=== PATIENT | male | born 1965 | race Caucasian/White ===

== ENCOUNTER 2020-11-13 13:28 | Inpatient (IN) | payer BC, OTHER ==
[~2020-11-13] VITALS: Ht 182.2 cm; Wt 99.3 kg
[2020-11-13] MEDS ORDERED: NS IV 1000 ML 1,000 ML IV STA (13:47)
[2020-11-13] MEDS ORDERED: PANTOPRAZOLE 40 MG (PROTONIX) VIAL IV STA (13:47)
--- NOTE | 2020-11-13 13:55 | ED GI ---
General Chief Complaint: Abdominal/GI Problems Stated Complaint: ABD PAIN Source of Information: Patient History of Present Illness Date Seen by Provider: Nov 13, 2020 Time Seen by Provider: 13:29 Initial Comments 55-year-old male presenting with upper abdominal pain and nausea with vomiting 1 week. He had gone to clinic where he follows with Dr. Madden and they had sent him in for an ultrasound and labs. On the ultrasound they had felt that his portal vein was thrombosed and occluded. They were concerned that this might be contributing to his acute abdominal pain. However due to a lot of gas in his intestines and bowels they were having difficulty getting good windows on the ultrasound and recommended further evaluation. Since he was still having a lot of pain they recommended he come to the emergency department for further ev aluation. He denies any past medical problems with the liver or gallbladder. He does have a history of high triglycerides, high blood pressure and diabetes managed with oral medication. Since taking some nausea medicine today he was able to take ibuprofen for pain as well as some 1/2 strength gatorade to help prevent his sugar from going too high. Allergies and Home Medications Allergies Coded Allergies: No Known Drug Allergies (Unverified , 11/13/20) Patient Home Medication List Home Medication List Reviewed: Yes Review of Systems Review of Systems Constitutional: chills, fever (low grade), malaise EENTM: No Symptoms Reported Respiratory: No Symptoms Reported Cardiovascular: No Symptoms Reported Gastrointestinal: See HPI Genitourinary: No Symptoms Reported Musculoskeletal: no symptoms reported Skin: no symptoms reported Psychiatric/Neurological: No Symptoms Reported Endocrine: No Symptoms Reported Past Afttogp-Zxcvvp-Fddftr Hx Past Med/Social Hx: Reviewed Nursing Past Med/Soc Hx Patient Social History Recent Foreign Travel: No Contact w/Someone Who Travel: No Past Medical History Surgeries: Yes Appendectomy Respiratory: No Cardiac: Yes High Cholesterol (triglycerides), Hypertension Neurological: No Genitourinary: No Gastrointestinal: No Musculoskeletal: No Endocrine: Yes Diabetes, Non-Insulin dep HEENT: No Cancer: No Psychosocial: No Physical Exam Vital Signs Vital Signs - First Documented 11/13/20 13:34 Temp 37.3 Pulse 84 Resp 16 B/P (MAP) 121/81 (94) Pulse Ox 94 O2 Delivery Room Air Capillary Refill : Height/Weight/BMI Height: '" Weight: lbs. oz. kg; BMI Method: General Appearance: WD/WN, mild distress Neck: non-tender, supple Respiratory: chest non-tender, lungs clear, normal breath sounds, no respiratory distress, no accessory muscle use Cardiovascular: normal peripheral pulses, regular rate, rhythm Gastrointestinal: normal bowel sounds, soft, no pulsatile mass, guarding; No rebound; tenderness (upper abdomen RUQ worst area) Rectal: deferred Extremities: normal range of motion, normal capillary refill Neurologic/Psychiatric: director stage II-XII nml as tested, alert, oriented x 3 Skin: normal color, warm/dry Images 1 - upper abdominal pain worst area in RUQ Focused Exam Lactate Level 11/13/20 13:40: Lactic Acid Level 1.17 Lactic Acid Level Laboratory Tests Test 11/13/20 13:40 Lactic Acid Level 1.17 MMOL/L (0.50-2.00) Progress/Results/Core Measures Results/Orders Lab Results Laboratory Tests Test 11/13/20 13:40 11/13/20 14:46 Range/Units White Blood Count 11.2 H 4.3-11.0 10^3/uL Red Blood Count 4.73 4.35-5.85 10^6/uL Hemoglobin 13.4 13.3-17.7 G/DL Hematocrit 40 40-54 % Mean Corpuscular Volume 84 80-99 FL Mean Corpuscular Hemoglobin 28 25-34 PG Mean Corpuscular Hemoglobin Concent 34 32-36 G/DL Red Cell Distribution Width 12.7 10.0-14.5 % Platelet Count 204 130-400 10^3/uL Mean Platelet Volume 10.2 7.4-10.4 FL Immature Granulocyte % (Auto) 0 % Neutrophils (%) (Auto) 73 42-75 % Lymphocytes (%) (Auto) 17 12-44 % Monocytes (%) (Auto) 9 0-12 % Eosinophils (%) (Auto) 1 0-10 % Basophils (%) (Auto) 0 0-10 % Neutrophils # (Auto) 8.2 H 1.8-7.8 X 10^3 Lymphocytes # (Auto) 1.9 1.0-4.0 X 10^3 Monocytes # (Auto) 1.0 0.0-1.0 X 10^3 Eosinophils # (Auto) 0.1 0.0-0.3 10^3/uL Basophils # (Auto) 0.0 0.0-0.1 10^3/uL Immature Granulocyte # (Auto) 0.0 0.0-0.1 10^3/uL Prothrombin Time 14.3 12.2-14.7 SEC INR Comment 1.1 0.8-1.4 Activated Partial Thromboplast Time 27 24-35 SEC Sodium Level 134 L 135-145 MMOL/L Potassium Level 4.1 3.6-5.0 MMOL/L Chloride Level 97 L 98-107 MMOL/L Carbon Dioxide Level 24 21-32 MMOL/L Anion Gap 13 5-14 MMOL/L Blood Urea Nitrogen 14 7-18 MG/DL Creatinine 1.14 0.60-1.30 MG/DL Estimat Glomerular Filtration Rate > 60 BUN/Creatinine Ratio 12 Glucose Level 140 H 70-105 MG/DL Lactic Acid Level 1.17 0.50-2.00 MMOL/L Calcium Level 9.3 8.5-10.1 MG/DL Corrected Calcium 8.9 8.5-10.1 MG/DL Magnesium Level 2.0 1.6-2.4 MG/DL Total Bilirubin 0.5 0.1-1.0 MG/DL Aspartate Amino Transf (AST/SGOT) 24 5-34 U/L Alanine Aminotransferase (ALT/SGPT) 73 H 0-55 U/L Alkaline Phosphatase 114 40-136 U/L Total Protein 7.6 6.4-8.2 GM/DL Albumin 4.5 3.2-4.5 GM/DL Lipase 13 8-78 U/L Urine Color DARK YELLOW Urine Clarity CLEAR Urine pH 6.0 5-9 Urine Specific Emmett 1.010 L 1.016-1.022 Urine Protein NEGATIVE NEGATIVE Urine Glucose (UA) NEGATIVE NEGATIVE Urine Ketones NEGATIVE NEGATIVE Urine Nitrite NEGATIVE NEGATIVE Urine Bilirubin NEGATIVE NEGATIVE Urine Urobilinogen 1.0 < = 1.0 MG/DL Urine Leukocyte Esterase NEGATIVE NEGATIVE Urine RBC (Auto) NEGATIVE NEGATIVE Urine RBC RARE /HPF Urine WBC 2-5 /HPF Urine Squamous Epithelial Cells 0-2 /HPF Urine Crystals NONE /LPF Urine Bacteria NEGATIVE /HPF Urine Casts PRESENT /LPF Urine Hyaline Casts 10-25 H /LPF Urine Mucus SMALL H /LPF Urine Culture Indicated NO My Orders Orders - LORI CHAMPION MD Comprehensive Metabolic Panel (11/13/20 13:47) Lipase (11/13/20 13:47) Ua Culture If Indicated (11/13/20 13:47) Ed Iv/Invasive Line Start (11/13/20 13:47) Cbc With Automated Diff (11/13/20 13:47) Ct Abdomen/Pelvis W (11/13/20 13:47) Magnesium (11/13/20 13:47) Lactic Acid Analyzer (11/13/20 13:47) Ns Iv 1000 Ml (Sodium Chloride 0.9%) (11/13/20 13:47) Pantoprazole Injection (Protonix Injecti (11/13/20 13:47) Iohexol Injection (Omnipaque 350 Mg/Ml 1 (11/13/20 14:30) Received Contrast (Hold Metformin- Contr (11/13/20 14:30) Sodium Chloride Flush (Catheter Flush Sy (11/13/20 14:30) Ns (Ivpb) (Sodium Chloride 0.9% Ivpb Bag (11/13/20 14:30) Protime With Inr (11/13/20 15:01) Partial Thromboplastin Time (11/13/20 15:01) Medications Given in ED Current Medications Medications Dose Ordered Sig/Ace Route Start Time Stop Time Status Last Admin Dose Admin Iohexol 100 ml ONCE ONCE IV 11/13/20 14:30 11/13/20 14:31 DC 11/13/20 14:30 100 ML Sodium Chloride 10 ml NEEDED PRN IV 11/13/20 14:30 11/13/20 16:21 DC 11/13/20 14:30 10 ML Sodium Chloride 100 ml ONCE ONCE IV 11/13/20 14:30 11/13/20 14:31 DC 11/13/20 14:30 80 ML Vital Signs/I&O 11/13/20 11/13/20 13:34 16:20 Temp 37.3 37.3 Pulse 84 79 Resp 16 16 B/P (MAP) 121/81 (94) 124/78 (94) Pulse Ox 94 95 O2 Delivery Room Air Room Air Progress Progress Note #1: Progress Note check labs, CT scan of abdomen/pelvis with IV contrast to further evaluate the liver and portal vein system. Give IVF for hydration, Protonix for gastritis. He rates his pain 2/10 currently since taking ibuprofen at home. Will defer pain med for now. Nausea controlled currently as well. Advised to let us know if either returns and will give more meds. Progress Note #2: Time: 14:54 Progress Note CBC has mild elevation of WBC to 11.2. Chemistry without acute significant abnormality. Lactic acid 1.17. ALT mildly elevated to 73. Lipase and other LFTs are all WNL. CT scan still shows signs of Portal vein thrombosis. RLL atelectasis vs infiltrate. Progress Note #3: Time: 15:08 Progress Note d/w Dr. Duarte and will admit for anticoagulation and treatment for pain, n/v. She accepted pt and requested surgery consult. 1520 Dr. Bruno advised of consult Progress Note #4: Progress Note Patient was agreeable to be admitted but wanted his to drive him to [facility] rather than wait for ambulance to take him. Will send paperwork with pt and advised he needs to go straight to the hospital in [place] and that he is at risk of clotting off his intestines or having bleeding from his esophagus or gut so he needs to be seen as soon as possible for treatment. Diagnostic Imaging Diagonstic Imaging: CT Plain Films/CT/US/NM/MRI: abdomen, pelvis Comments NAME: PHILLIP DUMONT [facility] REC#: [id number] PT STATUS: REG ER : 1965 PHYSICIAN: LORI CHAMPION MD ADMIT DATE: 11/13/20/ER FS Draft Date of Exam:11/13/20 CT ABDOMEN/PELVIS W PROCEDURE: CT abdomen and pelvis with contrast. TECHNIQUE: Multiple contiguous axial images were obtained through the abdomen and pelvis after administration of intravenous contrast. Auto Exposure Controls were utilized during the CT exam to meet ALARA standards for radiation dose reduction. All CT scans use one or more of the following dose optimizing techniques: automated exposure control, MA and/or KvP adjustment based on patient size and exam type or iterative reconstruction. INDICATION: Upper abdominal pain for one week. COMPARISON: No prior studies are available for comparison. FINDINGS: Lung bases demonstrate some minimal infiltrate or atelectasis in the right lower lobe. Tiny circumscribed low density lesions in the dome of the liver are noted, too small to characterize. There are some patchy areas of low attenuation within the liver right lobe. There is an absence of contrast within the main portal vein as well as the right and left portal vein suggestive of portal vein thrombosis. There is flow in the hepatic arteries. No biliary ductal dilatation is seen. Pancreas and spleen are unremarkable. No adrenal mass is identified. Kidneys are unremarkable. Aorta is non-aneurysmal. No central retroperitoneal or mesenteric lymphadenopathy is seen. The small and large bowel loops are normal caliber. There is no obstruction. There is a small fat-containing umbilical hernia. Trace free fluid in the right gutter is noted. The bladder is decompressed. Prostate is unremarkable. The bony structures are nonacute. IMPRESSION: 1. Minimal right lower lobe infiltrate or atelectasis. 2. Findings suggestive of portal vein thrombosis. There is parenchymal heterogeneity in the liver as well with probable small hepatic cyst. Ultrasound would be useful for further evaluation to evaluate hepatic vasculature. 3. Small fat-containing umbilical hernia. Dictated on workstation # [id number] Dict: 11/13/20 1442 Trans: 11/13/20 1450 [facility] [id number] Interpreted by: JASE SANTIAGO MD Electronically signed by: Departure Communication (Admissions) Time/Spoke to Admitting Phy: 15:08 d/w Dr. Duarte for hospitalist service and will admit to treat with anticoagulation and for pain and nausea control for his portal vein thrombosis. She requested surgery consult in case pt had complications so will notify Dr. Bruno. Time/Spoke to Consulting Phy: 15:[address] Bruno of pt consult and what was going on for the patient and the concern for possible ischemic bowel and esophageal varices with bleeding, although he has had none of those things currently. Impression Primary Impression: Portal vein thrombosis Additional Impressions: Upper abdominal pain Nausea & vomiting Qualified Codes: R11.14 - Bilious vomiting Disposition: 30 STILL A PATIENT Condition: Stable Admissions Decision to Admit Reason: Admit from ER (General) Decision to Admit/Date: Nov 13, 2020 Time/Decision to Admit Time: 15:08 Departure-Patient Inst. Referrals: GARRY MADDEN DO (PCP/Family) Primary Care Physician LORI CHAMPION MD Nov 13, 2020 13:55
[2020-11-13 14:08] LABS: BASOPHILS % (AUTO) 0 % (0-10); EOSINOPHILS % (AUTO) 1 % (0-10); HEMATOCRIT 40 % (40-54); HEMOGLOBIN 13.4 G/DL (13.3-17.7); LYMPHOCYTES % (AUTO) 17 % (12-44); MEAN CORPUSCULAR HEMOGLOBIN 28 PG (25-34); MEAN CORPUSCULAR HGB CONC 34 G/DL (32-36); MEAN CORPUSCULAR VOLUME 84 FL (80-99); MEAN PLATELET VOLUME 10.2 FL (7.4-10.4); MONOCYTES % (AUTO) 9 % (0-12); NEUTROPHILS % (AUTO) 73 % (42-75); PLATELET COUNT 204 10^3/uL (130-400); WHITE BLOOD COUNT 11.2 10^3/uL (4.3-11.0)
[2020-11-13 14:09] LABS: EOSINOPHILS # (AUTO) 0.1 10^3/uL (0.0-0.3); LYMPHOCYTES # (AUTO) 1.9 X 10^3 (1.0-4.0); NEUTROPHILS # (AUTO) 8.2 X 10^3 (1.8-7.8)
[2020-11-13 14:10] LABS: ALANINE AMINOTRANSFERASE 73 U/L (0-55); ALBUMIN 4.5 GM/DL (3.2-4.5); ALKALINE PHOSPHATASE 114 U/L (40-136); BILIRUBIN,TOTAL 0.5 MG/DL (0.1-1.0); BUN/CREATININE RATIO 12; CALCIUM 9.3 MG/DL (8.5-10.1); CARBON DIOXIDE 24 MMOL/L (21-32); CHLORIDE 97 MMOL/L (98-107); CREATININE SERUM 1.14 MG/DL (0.60-1.30); GFR ESTIMATED > 60; GLUCOSE 140 MG/DL (70-105); LIPASE 13 U/L (8-78); POTASSIUM 4.1 MMOL/L (3.6-5.0); SODIUM 134 MMOL/L (135-145); TOTAL PROTEIN 7.6 GM/DL (6.4-8.2)
[2020-11-13] MEDS: CATHETER FLUSH 10 ML SYR IV PRN (14:30)
[2020-11-13] MEDS ORDERED: IOHEXOL 350 MG/ML 100 ML (OMNIPAQUE 350) VIAL IV ONE (14:30)
[2020-11-13] MEDS ORDERED: NS 100 ML (IVPB) BAG IV ONE (14:30)
[2020-11-13] MEDS ORDERED: HOLD METFORMIN - RECEIVED CONTRAST 20 ML VIAL IV SCH (14:30)
--- NOTE | 2020-11-13 14:50 | Diagnostic Imaging Report ---
PROCEDURE: CT abdomen and pelvis with contrast. TECHNIQUE: Multiple contiguous axial images were obtained through the abdomen and pelvis after administration of intravenous contrast. Auto Exposure Controls were utilized during the CT exam to meet ALARA standards for radiation dose reduction. All CT scans use one or more of the following dose optimizing techniques: automated exposure control, MA and/or KvP adjustment based on patient size and exam type or iterative reconstruction. INDICATION: Upper abdominal pain for one week. COMPARISON: No prior studies are available for comparison. FINDINGS: Lung bases demonstrate some minimal infiltrate or atelectasis in the right lower lobe. Tiny circumscribed low density lesions in the dome of the liver are noted, too small to characterize. There are some patchy areas of low attenuation within the liver, right lobe. There is an absence of contrast within the main portal vein as well as the right and left portal vein suggestive of portal vein thrombosis. There is flow in the hepatic arteries. No biliary ductal dilatation is seen. Pancreas and spleen are unremarkable. No adrenal mass is identified. Kidneys are unremarkable. Aorta is non-aneurysmal. No central retroperitoneal or mesenteric lymphadenopathy is seen. The small and large bowel loops are normal caliber. There is no obstruction. There is a small fat-containing umbilical hernia. Trace free fluid in the right gutter is noted. The bladder is decompressed. Prostate is unremarkable. The bony structures are nonacute. IMPRESSION: 1. Minimal right lower lobe infiltrate or atelectasis. 2. Findings suggestive of portal vein thrombosis. There is parenchymal heterogeneity in the liver as well with probable small hepatic cyst. Findings correlate with outside ultrasound report raising the question of portal vein thrombosis performed earlier the same day. 3. Small fat-containing umbilical hernia. Dictated by: Dictated on workstation # [id number]
[2020-11-13 15:02] LABS: BACTERIA,URINE NEGATIVE /HPF; BILIRUBIN,URINE NEGATIVE (NEGATIVE); CLARITY,URINE CLEAR; COLOR,URINE DARK YELLOW; GLUCOSE, URINE (UA) NEGATIVE (NEGATIVE); KETONES,URINE NEGATIVE (NEGATIVE); LEUKOCYTE ESTERASE ,URINE NEGATIVE (NEGATIVE); NITRITE,URINE NEGATIVE (NEGATIVE); PROTEIN,URINE NEGATIVE (NEGATIVE); RBC,URINE RARE /HPF; SQUAMOUS EPITHELIAL CELL,UR 0-2 /HPF
[2020-11-13 15:19] LABS: INR 1.1 (0.8-1.4); PROTHROMBIN TIME PATIENT 14.3 SEC (12.2-14.7)
--- NOTE | 2020-11-13 17:00 | NUR ---
PHILLIP DUMONT admitted to room 404-1, with an admitting diagnosis of THROMBOSIS, on 11/13/20 from ED.PHILLIP DUMONT introduced to surroundings, call light, bed controls, phone, TV, temperature control, lights, meal times, smoking policy, visitor policy, side rail policy, bathrooms and showers. Patient Rights given to patient in the handbook. PHILLIP DUMONT verbalizes understanding that [facility] is not responsible for the loss or damage to any personal effects or valuables that are kept in the patients posession during their hospitalization.
[2020-11-13 17:31] VITALS: BP 124/78
[2020-11-13 17:33] VITALS: BP 7/86
[2020-11-13] MEDS: ENOXAPARIN 100 MG/1 ML (LOVENOX) SYR SC SCH (18:06)
[2020-11-13] MEDS: NS IV 1000 ML 1,000 ML IV SCH (18:07)
--- NOTE | 2020-11-13 18:34 | Consultation - Surgery ---
JUSTO STODDARD MED STUDENT 11/13/20 1833: History of Present Illness History of Present Illness Patient Consulted On(emmanuelle/time) 11/13/20 17:27 Date Seen by Provider: Nov 13, 2020 Time Seen by Provider: 18:20 Reason for Visit: Abd pain, GI problems History of Present Illness HPI per ED: 55-year-old male presenting with upper abdominal pain and nausea with vomiting 1 week. He had gone to clinic where he follows with Dr. Madden and they had sent him in for an ultrasound and labs. On the ult rasound they had felt that his portal vein was thrombosed and occluded. They were concerned that this might be contributing to his acute abdominal pain. However due to a lot of gas in his intestines and bowels they were having difficulty getting good windows on the ultrasound and recommended further evaluation. Since he was still having a lot of pain they recommended he come to the emergency department for further evaluation. He denies any past medical problems with the liver or gallbladder. He does have a history of high triglycerides, high blood pressure and diabetes managed with oral medication. Since taking some nausea medicine today he was able to take ibuprofen for pain as well as some 1/2 strength gatorade to help prevent his sugar from going too high. HPI: Nasir is a 55yo male being consulted for abd pain and vomiting beginning last Friday. He says that he didn't eat anything from to Friday night, when he ate [employer] and shortly after began experiencing abd pain across the upper part of his abd, and loose stools. He describes the pain as a constant ache that becomes worse with food. At its worst he rated it a 7/10, but currently is at 2/10. Denies nausea, but has been experiencing dry heaving w/o vomiting since his symptoms began. Allergies and Home Medications Allergies Coded Allergies: No Known Drug Allergies (Unverified , 11/13/20) Patient Home Medication List Home Medication List Reviewed: Yes Past Zjxohtt-Dhokio-Xoepxx Hx Patient Social History Alcohol Use: Denies Use Recreational Drug Use: No Smoking Status: Never a Smoker 2nd Hand Smoke Exposure: No Recent Foreign Travel: No Contact w/Someone Who Travel: No Recent Infectious Disease Expo: No Recent Hopitalizations: No Seasonal Allergies Seasonal Allergies: No Surgeries History of Surgeries: Yes Surgeries: Appendectomy Respiratory History of Respiratory Disorde: No Cardiovascular History of Cardiac Disorders: Yes Cardiac Disorders: High Cholesterol (triglycerides), Hypertension Neurological History of Neurological Disord: No Genitourinary History of Genitourinary Disor: No Gastrointestinal History of Gastrointestinal Di: No Musculoskeletal History of Musculoskeletal Dis: No Endocrine History of Endocrine Disorders: Yes Endocrine Disorders: Diabetes, Non-Insulin dep HEENT History of HEENT Disorders: No Cancer History of Cancer: No Psychosocial History of Psychiatric Problem: No Integumentary History of Skin or Integumenta: No Blood Transfusions History of Blood Disorders: No Family Medical History Significant Family History: Hypertension, Other Conditions/Hx (ME(Father)) Review of Systems-General Constitutional: No dizziness, No fever EENTM: No hearing loss, No vision loss Respiratory: No short of breath Cardiovascular: No chest pain Gastrointestinal: abdominal pain (across upper abd); No nausea, No vomiting; other (dry heaving) Genitourinary: No dysuria Musculoskeletal: No muscle pain Psychiatric/Neurological: Denies Headache Physical Exam-General Problems Physical Exam Vital Signs Vital Signs - First Documented 11/13/20 13:34 Temp 37.3 Pulse 84 Resp 16 B/P (MAP) 121/81 (94) Pulse Ox 94 O2 Delivery Room Air Capillary Refill : Less Than 3 Seconds General Appearance: WD/WN, no apparent distress HEENT: PERRL/EOMI Neck: non-tender, full range of motion, normal inspection Respiratory: chest non-tender, no respiratory distress, no accessory muscle use Cardiovascular: normal peripheral pulses, regular rate, rhythm, no JVD Gastrointestinal: soft, tenderness (mild tenderness to upper abd) Rectal: deferred Back: normal inspection Extremities: normal range of motion, non-tender, normal inspection, no pedal edema Neurologic/Psychiatric: no motor/sensory deficits, alert, normal mood/affect, oriented x 3 Skin: normal color, warm/dry Lymphatic: no adenopathy Data Review Labs Laboratory Tests 11/13/20 13:40: White Blood Count 11.2H, Red Blood Count 4.73, Hemoglobin 13.4, Hematocrit 40, Mean Corpuscular Volume 84, Mean Corpuscular Hemoglobin 28, Mean Corpuscular Hemoglobin Concent 34, Red Cell Distribution Width 12.7, Platelet Count 204, Mean Platelet Volume 10.2, Immature Granulocyte % (Auto) 0, Neutrophils (%) (Auto) 73, Lymphocytes (%) (Auto) 17, Monocytes (%) (Auto) 9, Eosinophils (%) (Auto) 1, Basophils (%) (Auto) 0, Neutrophils # (Auto) 8.2H, Lymphocytes # (Auto) 1.9, Monocytes # (Auto) 1.0, Eosinophils # (Auto) 0.1, Basophils # (Auto) 0.0, Immature Granulocyte # (Auto) 0.0, Prothrombin Time 14.3, INR Comment 1.1, Activated Partial Thromboplast Time 27, Sodium Level 134L, Potassium Level 4.1, Chloride Level 97L, Carbon Dioxide Level 24, Anion Gap 13, Blood Urea Nitrogen 1 4, Creatinine 1.14, Estimat Glomerular Filtration Rate > 60, BUN/Creatinine Ratio 12, Glucose Level 140H, Lactic Acid Level 1.17, Calcium Level 9.3, Corrected Calcium 8.9, Magnesium Level 2.0, Total Bilirubin 0.5, Aspartate Amino Transf (AST/SGOT) 24, Alanine Aminotransferase (ALT/SGPT) 73H, Alkaline Phosphatase 114, Total Protein 7.6, Albumin 4.5, Lipase 13 11/13/20 14:46: Urine Color DARK YELLOW, Urine Clarity CLEAR, Urine pH 6.0, Urine Specific [place] 1.010L, Urine Protein NEGATIVE, Urine Glucose (UA) NEGATIVE, Urine Ketones NEGATIVE, Urine Nitrite NEGATIVE, Urine Bilirubin NEGATIVE, Urine Urobilinogen 1.0, Urine Leukocyte Esterase NEGATIVE, Urine RBC (Auto) NEGATIVE, Urine RBC RARE, Urine WBC 2-5, Urine Squamous Epithelial Cells 0-2, Urine Crystals NONE, Urine Bacteria NEGATIVE, Urine Casts PRESENT, Urine Hyaline Casts 10-25H, Urine Mucus SMALLH, Urine Culture Indicated NO Assessment/Plan Assessment/Plan Admission Diagonsis Portal vein thrombosis Assessment/Plan Portal vein thrombosis Leukocytosis - WBC 11.[address] abd/pelvis showed findings suggestive of portal vein thrombosis, correlating with earlier ultrasound Continue anticoagulation, monitor VS/labs, clears No surgical indication at this time, will continue to monitor LUZ MARIA TAPIA DO 11/13/201948: History of Present Illness History of Present Illness History of Present Illness Consult requested by Dr. Duarte for portal vein thrombosis. Patient is a 55-year-old male who has been having abdominal pain and nausea and dry heaves for the last 4 days. Patient states that he was unable to eat and then started getting hungry and grabs [employer]. He began having pain across the upper abdomen more on the right side. He began having some loose stools. He started having pain that was constant across the right upper quadrant without any other radiation. He rated the pain at a 7 out of 10 at its worst and currently a 2 out of 10. Patient was evaluated by his primary care provider who ordered an ultrasound which was concerning for portal vein thrombosis and was s ent to the emergency department for further evaluation. Patient had a CT scan performed which demonstrated findings consistent with portal vein thrombosis, umbilical hernia, minimal right lower lobe infiltrate/atelectasis. Allergies and Home Medications Allergies Coded Allergies: No Known Drug Allergies (Unverified , 11/13/20) Patient Home Medication List Home Medication List Reviewed: Yes Past Xkdvejp-Onekvo-Swzxas Hx Reviewed Nursing Assessment Reviewed/Agree w Nursing PMH: Yes Family Medical History Significant Family History: Hypertension, Other Conditions/Hx (ME(Father)) Review of Systems-General Constitutional: No dizziness, No fever EENTM: No hearing loss, No vision loss Respiratory: No short of breath Cardiovascular: No chest pain Gastrointestinal: abdominal pain (RUQ), nausea; No vomiting; other (dry heaving) Genitourinary: No decreased output, No dysuria Musculoskeletal: No back pain, No muscle pain Skin: No change in color, No change in hair/nails Psychiatric/Neurological: Denies Anxiety, Denies Depressed, Denies Headache All Other Systems Reviewed Negative Unless Noted: Yes (Negative excepted noted.) Physical Exam-General Problems Physical Exam General Appearance: WD/WN, no apparent distress HEENT: PERRL/EOMI, normal ENT inspection Neck: non-tender, full range of motion Respiratory: chest non-tender, no respiratory distress, no accessory muscle use Cardiovascular: regular rate, rhythm, no JVD Gastrointestinal: soft, no organomegaly, tenderness (mild tenderness to right upper quadrant) Rectal: deferred Back: normal inspection, no CVA tenderness Extremities: normal range of motion, non-tender, normal inspection, no pedal edema Neurologic/Psychiatric: no motor/sensory deficits, alert, normal mood/affect, oriented x 3 Skin: normal color, warm/dry Lymphatic: no adenopathy Assessment/Plan Assessment/Plan Assessment/Plan Portal vein thrombosis Right upper quadrant abdominal pain Leukocytosis - WBC 11.[address] abd/pelvis showed findings suggestive of portal vein thrombosis, correlating with reported ultrasound On Lovenox for anticoagulation, monitor VS/labs Clear liquid diet No surgical indication at this time Supervisory-Addendum Brief Verification & Attestation Participated in pt care: history, MDM, physical Personally performed: exam, history, MDM, supervision of care Care discussed with: Medical Student Procedures: n/a Results interpretation: Verified all documentation Verification and Attestation of Medical Student E/M Service A medical student performed and documented this service in my presence. I reviewed and verified all information documented by the medical student and made modifications to such information, when appropriate. I personally performed the physical exam and medical decision making. Luz Maria Tapia, Nov 13, 2020,19:52 JUSTO STODDARD MED STUDENT Nov 13, 2020 18:33 LUZ MARIA TAPIA DO Nov 13, 2020 19:49
[2020-11-13 19:48] VITALS: BP 137/86
[2020-11-14] VITALS: BP 114/57
[2020-11-14] MEDS: NS IV 1000 ML 1,000 ML IV SCH ×3 (01:21→21:42)
[2020-11-14] MEDS ORDERED: EZET10TA49 PO (01:48)
[2020-11-14] MEDS ORDERED: LISI1TAB46 PO (01:48)
[2020-11-14] MEDS ORDERED: FENO160T12 PO (01:48)
[2020-11-14] MEDS ORDERED: METF750T45 PO (01:48)
[2020-11-14] MEDS: CATHETER FLUSH 10 ML SYR IV PRN (03:05)
[2020-11-14] MEDS: fentaNYL INJECTION 100 MCG/2 ML AMP IV PRN ×6 (03:05→18:39)
[2020-11-14 03:53] VITALS: BP 115/60
[2020-11-14] MEDS: ENOXAPARIN 100 MG/1 ML (LOVENOX) SYR SC SCH ×2 (05:55→17:37)
[2020-11-14 06:07] LABS: BASOPHILS % (AUTO) 0 % (0-10); EOSINOPHILS # (AUTO) 0.2 10^3/uL (0.0-0.3); EOSINOPHILS % (AUTO) 2 % (0-10); HEMATOCRIT 33 % (40-54); HEMOGLOBIN 10.8 g/dL (13.3-17.7); LYMPHOCYTES # (AUTO) 2.4 10^3/uL (1.0-4.0); LYMPHOCYTES % (AUTO) 27 % (12-44); MEAN CORPUSCULAR HEMOGLOBIN 28 pg (25-34); MEAN CORPUSCULAR HGB CONC 33 g/dL (32-36); MEAN CORPUSCULAR VOLUME 87 fL (80-99); MEAN PLATELET VOLUME 10.2 fL (9.0-12.2); MONOCYTES % (AUTO) 11 % (0-12); NEUTROPHILS # (AUTO) 5.3 10^3/uL (1.8-7.8); NEUTROPHILS % (AUTO) 60 % (42-75); PLATELET COUNT 163 10^3/uL (130-400); WHITE BLOOD COUNT 8.8 10^3/uL (4.3-11.0)
[2020-11-14 06:28] LABS: ALANINE AMINOTRANSFERASE 49 U/L (0-55); ALBUMIN 3.4 GM/DL (3.2-4.5); ALKALINE PHOSPHATASE 83 U/L (40-136); BILIRUBIN,TOTAL 0.5 MG/DL (0.1-1.0); BUN/CREATININE RATIO 11; CALCIUM 8.1 MG/DL (8.5-10.1); CARBON DIOXIDE 21 MMOL/L (21-32); CHLORIDE 105 MMOL/L (98-107); CREATININE SERUM 1.01 MG/DL (0.60-1.30); GFR ESTIMATED > 60; GLUCOSE 119 MG/DL (70-105); POTASSIUM 3.6 MMOL/L (3.6-5.0); SODIUM 134 MMOL/L (135-145); TOTAL PROTEIN 6.3 GM/DL (6.4-8.2)
--- NOTE | 2020-11-14 07:15 | Progress Note - Surgery ---
JUSTO STODDARD MED STUDENT 11/14/20 0715: Subjective Date Seen by a Provider: Nov 14, 2020 Time Seen by a Provider: 06:20 Subjective/Events-last exam Pt seen and examined. He was resting in bed, NAD. No new events overnight. He still has mild epigastric/RUQ pain, with some pain in his back, but otherwise no complaints. Denies chest pain, N/V, SOB. Review of Systems General: No Chills HEENT: No Head Aches Pulmonary: No Dyspnea Cardiovascular: No: Chest Pain, Palpitations, Lt Headedness Gastrointestinal: Abdominal Pain; No: Nausea, Vomiting Genitourinary: No Dysuria Neurological: No: Numbness Focused Exam Lactate Level 11/13/20 13:40: Lactic Acid Level 1.17 Objective Exam Vital Signs Date Time Temp Pulse Resp B/P (MAP) Pulse Ox O2 Delivery O2 Flow Rate FiO2 11/14/20 03:53 38.0 85 16 115/60 (78) 93 Room Air 11/14/20 01:59 82 11/14/20 01:00 85 11/14/20 00:00 37.6 85 15 114/57 (76) 95 Room Air 11/13/20 20:41 82 11/13/20 19:49 Room Air 11/13/20 19:48 36.3 88 18 137/86 (103) 95 Room Air 11/13/20 17:33 36.3 80 18 7/86 (60) 95 Room Air 11/13/20 17:31 37.3 79 16 124/78 95 Room Air 11/13/20 16:20 37.3 79 16 124/78 (94) 95 Room Air 11/13/20 13:34 37.3 84 16 121/81 (94) 94 Room Air I & O 11/14/20 07:00 Intake Total 4211 ml Balance 4211 ml Capillary Refill : Less Than 3 Seconds General Appearance: No Apparent Distress, WD/WN HEENT: PERRL/EOMI Neck: Full Range of Motion, Normal Inspection, Non Tender, Supple Respiratory: Chest Non Tender, Lungs Clear, Normal Breath Sounds, No Accessory Muscle Use, No Respiratory Distress Cardiovascular: Regular Rate, Rhythm, No Edema, No Gallop, No JVD, No Murmur, Normal Peripheral Pulses Gastrointestinal: soft, no organomegaly, tenderness (mild tenderness to right upper quadrant) Extremity: Normal Capillary Refill, Normal Inspection, Normal Range of Motion, Non Tender, No Pedal Edema Neurologic/Psychiatric: Alert, Oriented x3, No Motor/Sensory Deficits, Normal Mood/Affect Skin: Normal Color, Warm/Dry Lymphatic: No Adenopathy Results Lab Laboratory Tests 11/13/20 13:40: White Blood Count 11.2H, Red Blood Count 4.73, Hemoglobin 13.4, Hematocrit 40, Mean Corpuscular Volume 84, Mean Corpuscular Hemoglobin 28, Mean Corpuscular Hemoglobin Concent 34, Red Cell Distribution Width 12.7, Platelet Count 204, Mean Platelet Volume 10.2, Immature Granulocyte % (Auto) 0, Neutrophils (%) (Auto) 73, Lymphocytes (%) (Auto) 17, Monocytes (%) (Auto) 9, Eosinophils (%) (Auto) 1, Basophils (%) (Auto) 0, Neutrophils # (Auto) 8.2H, Lymphocytes # (Auto) 1.9, Monocytes # (Auto) 1.0, Eosinophils # (Auto) 0.1, Basophils # (Auto) 0.0, Immature Granulocyte # (Auto) 0.0, Prothrombin Time 14.3, INR Comment 1.1, Activated Partial Thromboplast Time 27, Sodium Level 134L, Potassium Level 4.1, Chloride Level 97L, Carbon Dioxide Level 24, Anion Gap 13, Blood Urea Nitrogen 14, Creatinine 1.14, Estimat Glomerular Filtration Rate > 60, BUN/Creatinine Ratio 12, Glucose Level 140H, Lactic Acid Level 1.17, Calcium Level 9.3, Corrected Calcium 8.9, Magnesium Level 2.0, Total Bilirubin 0.5, Aspartate Amino Transf (AST/SGOT) 24, Alanine Aminotransferase (ALT/SGPT) 73H, Alkaline Phosphatase 114, Total Protein 7.6, Albumin 4.5, Lipase 13 11/13/20 14:46: Urine Color DARK YELLOW, Urine Clarity CLEAR, Urine pH 6.0, Urine Specific [place] 1.010L, Urine Protein NEGATIVE, Urine Glucose (UA) NEGATIVE, Urine Ketones NEGATIVE, Urine Nitrite NEGATIVE, Urine Bilirubin NEGATIVE, Urine Urobilinogen 1.0, Urine Leukocyte Esterase NEGATIVE, Urine RBC (Auto) NEGATIVE, Urine RBC RARE, Urine WBC 2-5, Urine Squamous Epithelial Cells 0-2, Urine Crystals NONE, Urine Bacteria NEGATIVE, Urine Casts PRESENT, Urine Hyaline Casts 10-25H, Urine Mucus SMALLH, Urine Culture Indicated NO 11/14/20 05:32: White Blood Count 8.8, Red Blood Count 3.80L, Hemoglobin 10.8L, Hematocrit 33L, Mean Corpuscular Volume 87, Mean Corpuscular Hemoglobin 28, Mean Corpuscular H emoglobin Concent 33, Red Cell Distribution Width 12.6, Platelet Count 163, Mean Platelet Volume 10.2, Immature Granulocyte % (Auto) 0, Neutrophils (%) (Auto) 60, Lymphocytes (%) (Auto) 27, Monocytes (%) (Auto) 11, Eosinophils (%) (Auto) 2, Basophils (%) (Auto) 0, Neutrophils # (Auto) 5.3, Lymphocytes # (Auto) 2.4, Monocytes # (Auto) 1.0, Eosinophils # (Auto) 0.2, Basophils # (Auto) 0.0, Immature Granulocyte # (Auto) 0.0, Sodium Level 134L, Potassium Level 3.6, Chloride Level 105, Carbon Dioxide Level 21, Anion Gap 8, Blood Urea Nitrogen 11, Creatinine 1.01, Estimat Glomerular Filtration Rate > 60, BUN/Creatinine Ratio 11, Glucose Level 119H, Calcium Level 8.1L, Corrected Calcium 8.6, Total Bilirubin 0.5, Aspartate Amino Transf (AST/SGOT) 16, Alanine Aminotransferase (ALT/SGPT) 49, Alkaline Phosphatase 83, Total Protein 6.3L, Albumin 3.4 Assessment/Plan Assessment/Plan Assessment/Plan Portal vein thrombosis Right upper quadrant abdominal pain Leukocytosis - improved, WBC 11.2 yesterday, 8.[address] abd/pelvis showed findings suggestive of portal vein thrombosis, correlating with reported ultrasound On Lovenox for anticoagulation, monitor VS/labs Clear liquid diet No surgical indication at this time Clinical Quality Measures DVT/VTE Risk/Contraindication: Risk Factor Score Per Nursin RFS Level Per Nursing on Admit: 4+=Very High LUZ MARIA BRUNO DO 11/14/202027: Subjective Subjective/Events-last exam Patient laying in bed. Patient no new complaints. Still has a little bit of epigastric right upper quadrant abdominal pain. Minimal pain in his back. Pain is under control though. Patient tolerating liquids. Denies any nausea vomiting fever sweats chills shortness of breath or chest pain. Objective Exam General Appearance: No Apparent Distress, WD/WN HEENT: PERRL/EOMI Neck: Full Range of Motion, Normal Inspection, Non Tender, Supple Respiratory: Chest Non Tender, No Accessory Muscle Use, No Respiratory Distress Cardiovascular: Regular Rate, Rhythm, No JVD Gastrointestinal: soft, tenderness (mild tenderness to right upper quadrant) Extremity: Normal Inspection, Normal Range of Motion, Non Tender Neurologic/Psychiatric: Alert, Oriented x3, No Motor/Sensory Deficits Skin: Normal Color, Warm/Dry Lymphatic: No Adenopathy Assessment/Plan Assessment/Plan Assessment/Plan Portal vein thrombosis Right upper quadrant abdominal pain Leukocytosis - improved, WBC 11.2 yesterday, 8.[address] abd/pelvis showed findings suggestive of portal vein thrombosis, correlating with reported ultrasound On Lovenox for anticoagulation, monitor VS/labs Clear liquid diet, when pain-free advance as tolerates. No surgical indication at this time Supervisory-Addendum Brief Verification & Attestation Participated in pt care: history, MDM, physical Personally performed: exam, history, MDM, supervision of care Care discussed with: Medical Student Procedures: n/a Results interpretation: Verified all documentation Verification and Attestation of Medical Student E/M Service A medical student performed and documented this service in my presence. I reviewed and verified all information documented by the medical student and made modifications to such information, when appropriate. I personally performed the physical exam and medical decision making. Luz Maria Bruno, Nov 14, 2020,20:28 JUSTO STODDARD MED STUDENT Nov 14, 2020 07:15 LUZ MARIA BRUNO DO Nov 14, 2020 20:28
[2020-11-14 08:00] VITALS: BP 115/64
[2020-11-14] MEDS: ONDANSETRON 4 MG/2 ML (SDV) Z0FRAN IV PRN (08:22)
[2020-11-14] MEDS: PANTOPRAZOLE 40 MG (PROTONIX) VIAL IV SCH (08:22)
[2020-11-14] MEDS ORDERED: ASCO500T17 PO (09:06)
[2020-11-14] MEDS ORDERED: ASPI-1238 PO (09:06)
[2020-11-14] MEDS ORDERED: OMG1KC PO (09:06)
[2020-11-14] MEDS ORDERED: CINN500C2 PO (09:06)
[2020-11-14] MEDS ORDERED: GARL500C2 PO (09:06)
[2020-11-14] MEDS ORDERED: CALC625T29 PO (09:06)
[2020-11-14] MEDS ORDERED: UBID100C17 PO (09:06)
[2020-11-14] MEDS ORDERED: MULT-1030 PO (09:06)
--- NOTE | 2020-11-14 09:45 | NUR ---
SPOKE WITH THE PT AND WENT THRU THE EXT MED HISTORY TO COMPLETE THE MED REC PT WAS ABLE TO NAME HIS MEDICATIONS WELL WHEN/HOW HE TAKES EACH LISINOPRIL/HCTZ 20/12.5MG SHOWS DIRECTIONS ON THE EXT MED HISTORY OF "1 TAB BID" HOWEVER PT ONLY TAKES 1 TAB DAILY- ACCORDING TO THE PT HIS BP IS CONTROLLED IN THE EVENING AND THEREFORE DOES NOT NEED THE 2ND DOSE OTC MEDS: MENS MTV VIT C FISH OIL GARLIC- PT SAYS HE TAKES 2-3 TAB DAILY BUT THERE HE DOES NOT HAVE SPECIFIC DAYS OR A SCHEDULE OF WHEN HE TAKES 2 VS TAKING 3 CINNAMON COQ10 ASPIRIN 81MG FIBER TABS
[2020-11-14] MEDS: HYDROcodone/APAP 5 MG/325 MG (LORTAB) TAB PO PRN ×4 (09:59→23:32)
--- NOTE | 2020-11-14 10:30 | History & Physical-Hospitalist ---
History of Present Illness HPI/Chief Complaint Pt is a 55yoCM with a PMH HTN, HLD, and NIDDMII who presented to the ER yesterday duet o abdominal pain. He states that it started about 1 week ago but he was able to tolerate it and eat and drink ok but had diarrhea. Then on [place] evening his pain worsened he was unable tot olerate much orally besides broth. He was worried he had COVID so was tested and that was negative. He saw the SEXUAL ASSAULT RESPONSE COORDINATOR at his PCPs office and an usg was ordered which revealed a portal vein thrombosis. He was referred to the ER for this. CT of his abdomen revealed similar. He was admitted for anticoagulation and pain control. This morning he s tates he is feeling better but still having severe pain at times. He believes this is because was driving 1000 miles a day Source: patient Date Seen 11/14/20 Time Seen by a Provider: 10:30 Attending Physician Mirian Duarte MD PCP Varinder Madden DO Referring Physician Date of Admission Nov 13, 2020 at 17:02 Home Medications & Allergies Home Medications Reviewed patient Home Medication Reconciliation performed by pharmacy medication reconciliations audio visual technician and/or nursing. Patients Allergies have been reviewed. Allergies Allergies Coded Allergies No Known Drug Allergies (Fozleevpvf52/28/20) Past Nffhxov-Tkreoz-Xerbck Hx Past Med/Social Hx: Reviewed Nursing Past Med/Soc Hx Patient Social History Alcohol Use: Denies Use Recreational Drug Use: No Smoking Status: Never a Smoker 2nd Hand Smoke Exposure: No Recent Foreign Travel: No Contact w/other who traveled: No Recent Hopitalizations: No Recent Infectious Disease Expo: No Immunizations Up To Date Date of Influenza Vaccine: Oct 14, 2020 Seasonal Allergies Seasonal Allergies: No Past Medical History Surgeries: Appendectomy Cardiac: High Cholesterol (triglycerides), Hypertension Endocrine: Diabetes, Non-Insulin dep History of Blood Disorders: No Family History Hypertension, Other Conditions/Hx (GA(Father)) Review of Systems Constitutional: No chills, No fever; malaise EENTM: no symptoms reported Respiratory: No cough, No dyspnea on exertion, No short of breath Cardiovascular: No chest pain Gastrointestinal: see HPI Genitourinary: no symptoms reported Musculoskeletal: no symptoms reported Skin: no symptoms reported Psychiatric/Neurological: No Symptoms Reported Physical Exam Physical Exam Vital Signs Vital Signs - First Documented 11/13/20 13:34 Temp 37.3 Pulse 84 Resp 16 B/P (MAP) 121/81 (94) Pulse Ox 94 O2 Delivery Room Air Capillary Refill : Less Than 3 Seconds Height, Weight, BMI Height: '" Weight: lbs. oz. kg; 29.91 BMI Method: General Appearance: No Apparent Distress, WD/WN HEENT: PERRL/EOMI Neck: Normal Inspection, Supple Respiratory: Lungs Clear, No Respiratory Distress Cardiovascular: Regular Rate, Rhythm, No Murmur Gastrointestinal: Normal Bowel Sounds, Non Tender, Soft Extremity: Normal Capillary Refill, No Calf Tenderness, No Pedal Edema Neurologic/Psychiatric: Alert, Oriented x3, Normal Mood/Affect Skin: Normal Color, Warm/Dry Results Results/Procedures Labs Laboratory Tests 11/14/20 05:32 11/15/20 09:35 Patient resulted labs reviewed. Imaging: Reviewed Imaging Report Assessment/Plan Admission Diagnosis Acute Portal Vein Thrombosis Admission Status: Inpatient Order (span 2 midnights) Reason for Inpatient Admission: see below Assessment and Plan Acute Portal Vein Thrombosis Continue on anticoagulation IV fentanyl for breakthrough pain with hydrocodone added this AM Hematology and Surgery consulted, appreciate recs Needs hypercoag workup per heme HTN HLD Continue home meds BP well controlled NIDDMII Hold home metformin due to contrast received fasting blood sugar 119 this AM DVT ppx: already on therapeutic Lovenox Diagnosis/Problems Diagnosis/Problems (1) Hypertension Status: Chronic Qualifiers: Hypertension type: essential hypertension Qualified Codes: I10 - Essential (primary) hypertension (2) Hyperlipidemia Status: Chronic Qualifiers: Hyperlipidemia type: unspecified Qualified Codes: E78.5 - Hyperlipidemia, unspecified (3) Portal vein thrombosis Status: Acute (4) Nausea & vomiting Status: Acute Qualifiers: Vomiting type: bilious vomiting Qualified Codes: R11.14 - Bilious vomiting (5) Upper abdominal pain Status: Acute Clinical Quality Measures DVT/VTE Risk/Contraindication: Risk Factor Score Per Nursin RFS Level Per Nursing on Admit: 4+=Very High MIRIAN DUARTE MD Nov 14, 2020 10:30
[2020-11-14 12:00] VITALS: BP 125/70
--- NOTE | 2020-11-14 13:41 | NUR ---
RD ASSESSMENT PMHx: hypercholesterolemia; HTN; DM; PT INTERACTION: Pt was awake and pleasant during consult for MST score. Pt states current appetite is alright, and that he hasn't had a "meal" since 11/11. Note pt currently on Clear Liquid diet, and avg PO intake 100% x2meal, per chart review. Pt states trying to follow a low-CHO diet at home, and has no issues with chewing/swallowing food. Pt states some recent issues with nausea and vomiting, and that his last BM was 11/11. Note pt not currently on bowel regimen per chart review. Pt states current DM management is good. Note unable to determine recent HbA1c, per chart review. Pt states no recent wt changes. Note unable to determine recent wt hx, per chart review. Upon visual assessment, pt appears to be adequately nourished with no visible signs of muscle/fat wasting and a BMI of 29.9 (Overweight BMI for age). Given PO intake, wt hx, and visual assessment, pt does not meet criteria for malnutrition, per ASPEN guidelines. ABNORMAL NUTRITION-RELATED LAB VALUES LOW: Na 134; Ca 8.1; Pro 6.3; HIGH: glu 119; Est. kcal needs: 1097-6970 kcal | 20-25 kcal/kg Est. Pro needs: 79-99 g Pro | 0.8-1.0 g Pro/kg PES STATEMENT: Inadequate oral intake (NI-2.1) related to loss of appetite, nausea, and vomiting, as evidenced by pt interview. INTERVENTION: Continue with current diet order of Clear Liquid diet. Pt may benefit from diet advancement to consistent CHO diet, as medically able and as tolerated. Offered and provided diet education on DM management. Discussed CHO counting, fiber, and smartphone applications for DM management. Pt verbalized understanding of information provided. Will continue to follow and reassess as pt needs, intake, and status change. Clark ANTON, MS RD LD [phone] cell
[2020-11-14 15:50] VITALS: BP 102/58
[2020-11-14 19:40] VITALS: BP 122/64
[2020-11-15] VITALS: BP 112/67
[2020-11-15 03:56] VITALS: BP 116/70
[2020-11-15] MEDS: ENOXAPARIN 100 MG/1 ML (LOVENOX) SYR SC SCH ×2 (06:25→17:00)
--- NOTE | 2020-11-15 07:21 | Progress Note - Surgery ---
JUSTO STODDARD MED STUDENT 11/15/20 0721: Subjective Date Seen by a Provider: Nov 15, 2020 Time Seen by a Provider: 06:30 Subjective/Events-last exam Pt seen and examined. He was resting in bed, awake, NAD. He says that his abd pain/back pain has improved significantly from yesterday and rates it 1/10. Has been ambulating more. Denies chest pain, SOB, N/V. Tolerating clears well, passing flatus. Review of Systems General: No Chills, No Fatigue HEENT: No Head Aches Pulmonary: No Dyspnea, No Cough Cardiovascular: No: Chest Pain, Palpitations, Lt Headedness Gastrointestinal: Abdominal Pain; No: Nausea, Vomiting Genitourinary: No Dysuria Neurological: No: Weakness, Numbness Focused Exam Lactate Level 11/13/20 13:40: Lactic Acid Level 1.17 Objective Exam Vital Signs Date Time Temp Pulse Resp B/P (MAP) Pulse Ox O2 Delivery O2 Flow Rate FiO2 11/15/20 03:56 37.0 74 17 116/70 (85) 95 Room Air 11/15/20 01:00 66 11/15/20 00:00 36.8 75 16 112/67 (82) 94 Room Air 11/14/20 20:00 Room Air 11/14/20 19:40 37.5 83 17 122/64 (83) 95 Room Air 11/14/20 19:00 80 11/14/20 15:50 37.2 77 18 102/58 (73) 94 Room Air 11/14/20 12:32 69 11/14/20 12:00 37.6 96 20 125/70 (88) 95 Room Air 11/14/20 08:00 Room Air 11/14/20 08:00 37.2 84 20 115/64 (81) 93 Room Air I & O 11/15/20 07:00 Intake Total 2300 ml Balance 2300 ml Capillary Refill : Less Than 3 SecondsLess Than 3 Seconds General Appearance: No Apparent Distress, WD/WN HEENT: PERRL/EOMI Neck: Full Range of Motion, Normal Inspection, Non Tender, Supple Respiratory: Chest Non Tender, Lungs Clear, Normal Breath Sounds, No Accessory Muscle Use, No Respiratory Distress Cardiovascular: Regular Rate, Rhythm, No Edema, No Gallop, No JVD, No Murmur, Normal Peripheral Pulses Gastrointestinal: normal bowel sounds, soft, distended (mildly distended); No guarding, No rebound; tenderness (mild tenderness to right upper quadrant) Extremity: Normal Capillary Refill, Normal Inspection, Normal Range of Motion, Non Tender, No Pedal Edema Neurologic/Psychiatric: Alert, Oriented x3, No Motor/Sensory Deficits, Normal Mood/Affect Skin: Normal Color, Warm/Dry Lymphatic: No Adenopathy Assessment/Plan Assessment/Plan Assessment/Plan Portal vein thrombosis Right upper quadrant abdominal pain Leukocytosis - 8.[address] abd/pelvis 11/13 showed findings suggestive of portal vein thrombosis, cor relating with reported ultrasound On Lovenox for anticoagulation, monitor VS/labs Tolerating clear liquid diet, when pain-free advance as tolerated No surgical indication at this time Clinical Quality Measures DVT/VTE Risk/Contraindication: Risk Factor Score Per Nursin RFS Level Per Nursing on Admit: 4+=Very High LUZ MARIA BRUNO DO 11/16/20 1211: Subjective Subjective/Events-last exam Having more pain after eating. -01/24. Was feeling better before that. Thinks he ate too fast. No nausea or vomiting. Denies fever sweats chills shortness of breath or chest pain. Objective Exam General Appearance: No Apparent Distress, WD/WN HEENT: PERRL/EOMI Neck: Full Range of Motion, Normal Inspection, Non Tender, Supple Respiratory: Chest Non Tender, No Accessory Muscle Use, No Respiratory Distress Cardiovascular: Regular Rate, Rhythm, No JVD Gastrointestinal: normal bowel sounds; No guarding, No rebound; tenderness (mild tenderness to right upper quadrant) Extremity: Normal Capillary Refill, Normal Inspection, Normal Range of Motion, Non Tender Neurologic/Psychiatric: Alert, Oriented x3, No Motor/Sensory Deficits, Normal Mood/Affect Skin: Normal Color, Warm/Dry Lymphatic: No Adenopathy Assessment/Plan Assessment/Plan Assessment/Plan Portal vein thrombosis Right upper quadrant abdominal pain Leukocytosis - 8.[address] abd/pelvis 11/13 showed findings suggestive of portal vein thrombosis, correlating with reported ultrasound On Lovenox for anticoagulation, monitor VS/labs Tolerating clear liquid diet, instructed to have small frequent intake. When pain-free advance as tolerated No surgical indication at this time Supervisory-Addendum Brief Verification & Attestation Participated in pt care: history, MDM, physical Personally performed: exam, history, MDM, supervision of care Care discussed with: Medical Student Procedures: n/a Results interpretation: Verified all documentation Verification and Attestation of Medical Student E/M Service A medical student performed and documented this service in my presence. I reviewed and verified all information documented by the medical student and made modifications to such information, when appropriate. I personally performed the physical exam and medical decision making. Luz Maria Bruno, Nov 15, 2020,12:11 JUSTO STODDARD MED STUDENT Nov 15, 2020 07:21 LUZ MARIA BRUNO DO Nov 16, 2020 12:11
[2020-11-15 08:00] VITALS: BP 142/72
[2020-11-15] MEDS: HYDROCHLOROTHIAZIDE 12.5 MG (HCTZ) CAP PO SCH (08:45)
[2020-11-15] MEDS: fentaNYL INJECTION 100 MCG/2 ML AMP IV PRN (08:45)
[2020-11-15] MEDS: PANTOPRAZOLE 40 MG (PROTONIX) VIAL IV SCH (08:46)
[2020-11-15] MEDS: eZETimibe 10 MG (ZETIA) TABLET PO SCH (08:46)
[2020-11-15] MEDS: FENOFIBRATE 134 MG (LOFIBRA) CAPSULE PO SCH (08:46)
[2020-11-15] MEDS: lisINopril 20 MG (PRINIVIL) TABLET PO SCH (08:46)
[2020-11-15] MEDS: OMEGA 3 (FISH OIL) 1000 MG CAP PO SCH (08:46)
[2020-11-15] MEDS: HYDROcodone/APAP 5 MG/325 MG (LORTAB) TAB PO PRN ×2 (08:47→18:13)
[2020-11-15] MEDS: ONDANSETRON 4 MG/2 ML (SDV) Z0FRAN IV PRN (08:50)
--- NOTE | 2020-11-15 10:20 | Progress Note - Hospitalist ---
Subjective HPI/CC On Admission Date Seen by Provider: Nov 15, 2020 Time Seen by Provider: 10:15 Pt is a 55yoCM with a PMH HTN, HLD, and NIDDMII who presented to the ER yesterday duet o abdominal pain. He states that it started about 1 week ago but he was able to tolerate it and eat and drink ok but had diarrhea. Then on evening his pain worsened he was unable tot olerate much orally besides broth. He was worried he had COVID so was tested and that was negative. He saw the BAIL BOND AGENT at his PCPs office and an usg was ordered which revealed a portal vein thrombosis. He was referred to the ER for this. CT of his abdomen revealed similar. He was admitted for anticoagulation and pain control. This morning he states he is feeling better but still having severe pain at times. He believes this is because was driving 1000 miles a day Subjective/Events-last exam Pt reports that he felt very well last night. Tolerated dinner last night but after breakfast this morning got nauseated and had increased pain. Focused Exam Lactate Level 11/13/20 13:40: Lactic Acid Level 1.17 Objective Exam Vital Signs Vital Signs Date Time Temp Pulse Resp B/P (MAP) Pulse Ox O2 Delivery O2 Flow Rate FiO2 11/15/20 03:56 37.0 74 17 116/70 (85) 95 Room Air Capillary Refill : Less Than 3 SecondsLess Than 3 Seconds General Appearance: No Apparent Distress, WD/WN Respiratory: Lungs Clear, No Respiratory Distress Cardiovascular: Regular Rate, Rhythm, No Murmur Gastrointestinal: Normal Bowel Sounds, Soft, Tenderness (mild, diffuse) Extremity: Normal Capillary Refill, No Calf Tenderness, No Pedal Edema Neurologic/Psychiatric: Alert, Oriented x3 Results/Procedures Lab Patient resulted labs reviewed. Assessment/Plan Assessment and Plan Assess & Plan/Chief Complaint Acute Portal Vein Thrombosis Continue on anticoagulation IV fentanyl for breakthrough pain with hydrocodone for first line use Hematology and Surgery consulted, appreciate recs Hypercoaguable work up started by Dr Moses HTN HLD Continue home meds BP well controlled NIDDMII Hold home metformin due to contrast received fasting blood sugar 119 DVT ppx: already on therapeutic Lovenox Diagnosis/Problems Diagnosis/Problems (1) Hypertension Status: Chronic Qualifiers: Hypertension type: essential hypertension Qualified Codes: I10 - Essential (primary) hypertension (2) Hyperlipidemia Status: Chronic Qualifiers: Hyperlipidemia type: unspecified Qualified Codes: E78.5 - Hyperlipidemia, unspecified (3) Portal vein thrombosis Status: Acute (4) Nausea & vomiting Status: Acute Qualifiers: Vomiting type: bilious vomiting Qualified Codes: R11.14 - Bilious vomiting (5) Upper abdominal pain Status: Acute Clinical Quality Measures DVT/VTE Risk/Contraindication: Risk Factor Score Per Nursin RFS Level Per Nursing on Admit: 4+=Very High ERIN MÁRQUEZ MD Nov 15, 2020 10:20
[2020-11-15 10:30] LABS: HEMOGLOBIN 10.8 g/dL (13.3-17.7); MEAN PLATELET VOLUME 10.5 fL (9.0-12.2); WHITE BLOOD COUNT 5.6 10^3/uL (4.3-11.0)
[2020-11-15 10:39] LABS: BUN/CREATININE RATIO 8; CALCIUM 8.1 MG/DL (8.5-10.1); CARBON DIOXIDE 25 MMOL/L (21-32); CHLORIDE 105 MMOL/L (98-107); CREATININE SERUM 0.99 MG/DL (0.60-1.30); GFR ESTIMATED > 60; GLUCOSE 196 MG/DL (70-105); POTASSIUM 3.4 MMOL/L (3.6-5.0); SODIUM 135 MMOL/L (135-145)
[2020-11-15 12:16] VITALS: BP 119/70
[2020-11-15 16:06] VITALS: BP 129/71
[2020-11-15] MEDS: NS IV 1000 ML 1,000 ML IV SCH (16:59)
[2020-11-15] MEDS ORDERED: NON-FORMULARY MEDICATION 1 EA EA (Metformin HCl (Metformin HCl ER) 750 MG) PO SCH (17:00)
--- NOTE | 2020-11-15 18:35 | Discharge Inst-Simple/Standard ---
Discharge Inst-Standard Discharge Medications New, Converted or Re-Newed RX: Transmitted to Pharmacy Patient Instructions/Follow Up Plan of Care/Instructions/FU: Please continue to take your medications as written. Please follow up with Dr Moses in 3-[address] Madden next week to follow up this hospital stay. Activity as Tolerated: Yes Discharge Diet: ADA Diet Return to The Hospital For: Chest pain, abdominal pain, shortness of breath, fever, confusion, if you feel you are getting worse. ERIN MÁRQUEZ MD Nov 15, 2020 18:35
--- NOTE | 2020-11-15 18:56 | CONSULTATION REPORT ---
DATE OF SERVICE: 11/15/2020 The patient is admitted to room 404. PHYSICIAN REQUESTING CONSULTATION: Mirian Duarte MD IMPRESSION: 1. A 55-year-old male admitted to the hospital with abdominal pain and found to have portal vein thrombosis. 2. History of hypertension, noninsulin dependent diabetes mellitus and hyperlipidemia with hypertriglyceridemia. Currently, on anticoagulation with Lovenox. RECOMMENDATIONS: 1. Continue anticoagulation with adjusted dose Lovenox either at 1 mg/kg twice daily or 1.5 mg/kg once daily. 2. May transition to oral anticoagulants with either Xarelto or Eliquis when abdominal pain, nausea and vomiting is controlled. 3. Because of his age and unprovoked thrombosis, especially at an unusual site, the patient will need evaluation for thrombophilia. 4. I will obtain a factor V Leiden and prothrombin gene [id number] mutation analysis. 5. Continue anticoagulation for a minimum of 6 months. 6. Follow up with me as an outpatient in four to six weeks to review the pending lab work. If he has evidence of thrombophilia, he will need lifelong anticoagulation. Since the patient is already on anticoagulation, I will not obtain other thrombophilia lab work. BRIEF HISTORY: The patient is a 55-year-old male, who complained of intermittent abdominal pain for the past few weeks, which has been gradually worsening and usually related to food intake. As his symptoms are worsening, he went to his primary physician who obtained an ultrasound of the abdomen, which raised the possibility of portal vein thrombosis. He was sent to the emergency room for further workup and a CT scan confirmed the diagnosis. He was admitted to the hospital for pain control as well as initiating anticoagulation. Hematology consult was requested for thrombophilia workup. PAST MEDICAL HISTORY: Significant for hypertension for the past several years and non-insulin dependent diabetes mellitus for which he is taking metformin daily. He also gave history of hypertriglyceridemia, for which he is on treatment. No other significant medical history. PRIOR SURGERIES: Include an appendectomy in the distant past as well as a tonsillectomy in childhood. He has had bilateral arthroscopic knee surgeries in his late teenage and early 20s years. SOCIAL HISTORY: The patient is and [place] [facility]. He does not have any children of his own, but has stepchildren. He denied any significant tobacco, alcohol or recreational drug use. 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 FAMILY HISTORY: Essentially unremarkable with no history of thrombosis . His father had a myocardial infarction in his 70s. No malignancies in the family and no early onset MN or CVAs in the family. PHYSICAL EXAMINATION: GENERAL: A middle-aged male, moderately obese, awake and oriented, in mild discomfort due to the abdominal pain. VITAL SIGNS: His temperature was 36.5 degree centigrade, pulse rate of 76, respirations 20, blood pressure 119/70 with oxygen saturation of 93% on room air. HEENT: Normocephalic, extraocular muscles intact, conjunctivae pink, oral mucosa moist. NECK: Supple, with no JVD. No cervical, supraclavicular or axillary lymphadenopathy palpable. CHEST: Symmetrical. LUNGS: Fairly clear to auscultation without wheezes or rales. CARDIOVASCULAR: Regular in rate and rhythm with no murmurs or gallops heard. ABDOMEN: Slightly obese, soft with a mild diffuse tenderness without guarding or rebound. EXTREMITIES: Showed no edema. NEUROLOGIC: Grossly intact without focal motor deficits. LABORATORY DATA: CBC done today showed WBC 5.6, hemoglobin 10.8, platelet count 160,000. BMP showed relatively normal electrolytes except potassium level of 3.4. BUN was 8 and creatinine 0.99 with GFR more than 60 mL per minute. Nonfasting glucose was 196. Previous liver function studies were normal on 11/14/2020. CT scan of the abdomen and pelvis done on 11/13/2020 during the evaluation at the emergency room showed minimal right lower lobe infiltrate or atelectasis. Absence of contrast within the main portal vein as well as right and left portal vein suggestive of portal vein thrombosis. Parenchymal heterogeneity in the liver as well as small hepatic cyst. It is a small fat containing umbilical hernia. Rest of the evaluation was unremarkable. Thank you for allowing me to participate in this patient's care. I will follow the patient with you. Job ID: [id number] DocumentID: [id number] Dictated Date: 11/15/2020 15:24:40 Cryptologic Supervisor Date: 11/15/2020 18:55:29 Dictated By: KEN MURRAY MD
[2020-11-15 20:02] VITALS: BP 120/73
[2020-11-16] VITALS: BP 122/71
[2020-11-16] MEDS: HYDROcodone/APAP 5 MG/325 MG (LORTAB) TAB PO PRN (03:50)
[2020-11-16] MEDS: ENOXAPARIN 100 MG/1 ML (LOVENOX) SYR SC SCH (06:16)
[2020-11-16 06:19] LABS: HEMOGLOBIN 10.8 g/dL (13.3-17.7); MEAN PLATELET VOLUME 10.2 fL (9.0-12.2); WHITE BLOOD COUNT 6.1 10^3/uL (4.3-11.0)
[2020-11-16 06:58] LABS: BUN/CREATININE RATIO 8; CALCIUM 8.2 MG/DL (8.5-10.1); CARBON DIOXIDE 23 MMOL/L (21-32); CHLORIDE 106 MMOL/L (98-107); CREATININE SERUM 0.84 MG/DL (0.60-1.30); GFR ESTIMATED > 60; GLUCOSE 104 MG/DL (70-105); POTASSIUM 3.5 MMOL/L (3.6-5.0); SODIUM 137 MMOL/L (135-145)
--- NOTE | 2020-11-16 07:08 | Progress Note - Surgery ---
ARLYNJUSTO MED STUDENT 11/16/20 0708: Subjective Date Seen by a Provider: Nov 16, 2020 Time Seen by a Provider: 06:30 Subjective/Events-last exam Pt seen and examined. He was resting in bed, NAD. He says that his abd pain has improved and he barely feels it now. He ate dinner last night without issues/pain. Denies N/V, SOB Review of Systems General: No Chills HEENT: No Head Aches Pulmonary: No Dyspnea Cardiovascular: No: Chest Pain, Palpitations Gastrointestinal: Abdominal Pain; No: Nausea, Vomiting Genitourinary: No Dysuria Neurological: No: Numbness Focused Exam Lactate Level 11/13/20 13:40: Lactic Acid Level 1.17 Objective Exam Vital Signs Date Time Temp Pulse Resp B/P (MAP) Pulse Ox O2 Delivery O2 Flow Rate FiO2 11/16/20 01:00 77 11/16/20 00:00 36.6 75 18 122/71 (88) 93 Room Air 11/15/20 21:00 93 Room Air 11/15/20 20:02 35.9 84 17 120/73 (89) 93 Room Air 11/15/20 20:00 Room Air 11/15/20 19:00 89 11/15/20 16:06 37.1 94 18 129/71 (90) 91 Room Air 11/15/20 12:32 83 11/15/20 12:16 36.5 76 20 119/70 (86) 93 Room Air 11/15/20 08:00 Room Air 11/15/20 08:00 37.5 81 20 142/72 (95) 94 Room Air I & O 11/16/20 07:00 Intake Total 1980 ml Output Total 350 ml Balance 1630 ml Capillary Refill : Less Than 3 SecondsLess Than 3 Seconds General Appearance: No Apparent Distress, WD/WN HEENT: PERRL/EOMI Neck: Normal Inspection, Supple Respiratory: Chest Non Tender, Lungs Clear, Normal Breath Sounds, No Accessory Muscle Use, No Respiratory Distress Cardiovascular: Regular Rate, Rhythm, No Edema, No Gallop, No JVD, No Murmur, Normal Peripheral Pulses Gastrointestinal: normal bowel sounds, soft, distended (mildly distended); No guarding, No rebound; tenderness (mild tenderness to right upper quadrant) Extremity: Normal Capillary Refill, Normal Inspection, Normal Range of Motion, Non Tender, No Calf Tenderness, No Pedal Edema Neurologic/Psychiatric: Alert, Oriented x3, No Motor/Sensory Deficits, Normal Mood/Affect Skin: Normal Color, Warm/Dry Lymphatic: No Adenopathy Results Lab Laboratory Tests 11/15/20 09:35: White Blood Count 5.6, Red Blood Count 3.78L, Hemoglobin 10.8L, Hematocrit 33L, Mean Corpuscular Volume 87, Mean Corpuscular Hemoglobin 29, Mean Corpuscular Hemoglobin Concent 33, Red Cell Distribution Width 12.6, Platelet Count 160, Mean Platelet Volume 10.5, Sodium Level 135, Potassium Level 3.4L, Chloride Level 105, Carbon Dioxide Level 25, Anion Gap 5, Blood Urea Nitrogen 8, Creatinine 0.99, Estimat Glomerular Filtration Rate > 60, BUN/Creatinine Ratio 8, Glucose Level 196H, Calcium Level 8.1L 11/16/20 05:23: White Blood Count 6.1, Red Blood Count 3.76L, Hemoglobin 10.8L, Hematocrit 33L, Mean Corpuscular Volume 87, Mean Corpuscular Hemoglobin 29, Mean Corpuscular Hemoglobin Concent 33, Red Cell Distribution Width 12.8, Platelet Count 177, Mean Platelet Volume 10.2, Sodium Level 137, Potassium Level 3.5L, Chloride Level 106, Carbon Dioxide Level 23, Anion Gap 8, Blood Urea Nitrogen 7, Creatinine 0.84, Estimat Glomerular Filtration Rate > 60, BUN/Creatinine Ratio 8, Glucose Level 104, Calcium Level 8.2L Assessment/Plan Assessment/Plan Assessment/Plan Portal vein thrombosis Right upper quadrant abdominal pain Leukocytosis - resolved, 6.[address] abd/pelvis 11/13 showed findings suggestive of portal vein thrombosis, correlating with reported ultrasound On Lovenox for anticoagulation, monitor VS/labs Tolerating clear liquid diet, when pain-free advance as tolerated No surgical indication at this time Clinical Quality Measures DVT/VTE Risk/Contraindication: Risk Factor Score Per Nursin RFS Level Per Nursing on Admit: 4+=Very High LUZ MARIA BRUNO DO 11/16/20 1218: Subjective Subjective/Events-last exam Feeling better. No abdominal pain. Tolerating diet. No new complaints. Denies n/v fever sweats chills shortness of breath or chest pain. Objective Exam General Appearance: No Apparent Distress, WD/WN HEENT: PERRL/EOMI, Normal ENT Inspection Neck: Normal Inspection, Supple Respiratory: Chest Non Tender, No Accessory Muscle Use, No Respiratory Distress Cardiovascular: Regular Rate, Rhythm, No JVD Gastrointestinal: soft; No distended (mildly distended), No guarding, No rebound; tenderness (minimal right upper quadrant) Extremity: Normal Capillary Refill, Normal Inspection, Normal Range of Motion, Non Tender, No Calf Tenderness Neurologic/Psychiatric: Alert, Oriented x3, No Motor/Sensory Deficits, Normal Mood/Affect Skin: Normal Color, Warm/Dry Lymphatic: No Adenopathy Assessment/Plan Assessment/Plan Assessment/Plan Portal vein thrombosis Right upper quadrant abdominal pain Leukocytosis - resolved T2DM CT abd/pelvis 11/13 showed findings suggestive of portal vein thrombosis, correlating with reported ultrasound anticoagulation workup for thrombophilia diet advance as tolerated No surgical indication at this time Supervisory-Addendum Brief Verification & Attestation Participated in pt care: history, MDM, physical Personally performed: exam, history, MDM, supervision of care Care discussed with: Medical Student Procedures: n/a Results interpretation: Verified all documentation Verification and Attestation of Medical Student E/M Service A medical student performed and documented this service in my presence. I reviewed and verified all information documented by the medical student and made modifications to such information, when appropriate. I personally performed the physical exam and medical decision making. Luz Maria Bruno, Nov 16, 2020,12:17 JUSTO STODDARD MED STUDENT Nov 16, 2020 07:08 LUZ MARIA BRUNO DO Nov 16, 2020 12:18
[2020-11-16 08:00] VITALS: BP 132/79
[2020-11-16] MEDS: PANTOPRAZOLE 40 MG (PROTONIX) VIAL IV SCH (08:36)
[2020-11-16] MEDS: HYDROCHLOROTHIAZIDE 12.5 MG (HCTZ) CAP PO SCH (08:36)
[2020-11-16] MEDS: eZETimibe 10 MG (ZETIA) TABLET PO SCH (08:37)
[2020-11-16] MEDS: OMEGA 3 (FISH OIL) 1000 MG CAP PO SCH (08:37)
[2020-11-16] MEDS: FENOFIBRATE 134 MG (LOFIBRA) CAPSULE PO SCH (08:37)
[2020-11-16] MEDS: lisINopril 20 MG (PRINIVIL) TABLET PO SCH (08:37)
[2020-11-16] MEDS ORDERED: APIX5TAB PO (11:29)
[2020-11-16] MEDS ORDERED: ACHD5005 PO (11:31)
[2020-11-16] MEDS ORDERED: PANT40TA2 PO (11:31)
--- NOTE | 2020-11-16 11:32 | Discharge Summary ---
Diagnosis/Chief Complaint Date of Admission Nov 13, 2020 at 17:02 Date of Discharge Discharge Date: Nov 15, 2020 Admission Diagnosis Acute Portal Vein Thrombosis Primary Care Varinder Madden DO Discharge Diagnosis (1) Hypertension Status: Chronic (2) Hyperlipidemia Status: Chronic (3) Portal vein thrombosis Status: Acute (4) Nausea & vomiting Status: Acute (5) Upper abdominal pain Status: Acute Discharge Summary Discharge Physical Exam Allergies: Coded Allergies: No Known Drug Allergies (Unverified , 11/13/20) Vitals & I&Os Vital Signs Date Time Temp Pulse Resp B/P (MAP) Pulse Ox O2 Delivery O2 Flow Rate FiO2 11/16/20 14:45 36.8 74 20 132/79 94 Room Air General Appearance: No Apparent Distress, WD/WN Respiratory: Lungs Clear, No Respiratory Distress Cardiovascular: Regular Rate, Rhythm, No Murmur Hospital Course Pt was admitted due to acute portal vein thrombosis. He was treated with IV Lovenox and switch to Eliquis upon discharge for continued anticoagulation. Surgery and Hematology were consulted. He did well and was able to tolerate oral intake prior to discharge. Pain was controlled with oral meds as well. He was advised to follow up with Dr Moses to follow up on hypercoaguable work up. He is to follow up with his PCP next week. Labs (last 24 hrs) Patient resulted labs reviewed. Pending Labs Imaging: Reviewed Imaging Report Discussion & Recommendations Discharge Planning: >30 minutes discharge planning Discharge Home Medications: Active Scripts Active Hydrocodone-Acetamin 5-325 mg (Hydrocodone/Acetaminophen) 1 Each Tablet 1 Tab PO Q4H PRN Protonix (Pantoprazole Sodium) 40 Mg Tablet. 40 Mg PO DAILY Eliquis (Apixaban) 5 Mg Tablet 5 Mg PO BID 30 Days TAKE 2 TABLETS BID X 7 DAYS, THEN 1 TABLET BID Reported Fiber Tabs (Calcium Polycarbophil) 625 Mg Tablet 625 Mg PO DAILY Aspirin EC (Aspirin) 81 Mg Tablet. 81 Mg PO DAILY Coq-10 (Ubidecarenone) 100 Mg Capsule 100 Mg PO DAILY Cinnamon (Cinnamon Bark) 500 Mg Capsule 1,000 Mg PO DAILY Garlic 500 Mg Capsule 1,000-1,500 Mg PO DAILY Fish Oil 1,000 mg Capsule ([place] 3 Polyunsat Fatty Acids) 1,000 Mg Cap 2,000 Mg PO DAILY Vitamin C (Ascorbic Acid) 500 Mg Tablet 500 Mg PO DAILY Centrum Men's Tablet (Multivits,Ca,Min/Iron/FA/Lycop) 1 Each Tablet 1 Each PO DAILY Ezetimibe 10 Mg Tablet 10 Mg PO DAILY Lisinopril-Hctz 20-12.5 mg Tab (Lisinopril/Hydrochlorothiazide) 1 Each Tablet 1 Ea PO DAILY Fenofibrate 160 Mg Tablet 160 Mg PO DAILY Metformin HCl ER (Metformin HCl) 750 Mg Tab.er.24h 750 Mg PO 1700 Instructions to patient/family Please see electronic discharge instructions given to patient. Clinical Quality Measures DVT/VTE Risk/Contraindication: Risk Factor Score Per Nursin RFS Level Per Nursing on Admit: 4+=Very High Problem Qualifiers (1) Hypertension: Hypertension type: essential hypertension Qualified Codes: I10 - Essential (primary) hypertension (2) Hyperlipidemia: Hyperlipidemia type: unspecified Qualified Codes: E78.5 - Hyperlipidemia, unspecified (3) Nausea & vomiting: Vomiting type: bilious vomiting Qualified Codes: R11.14 - Bilious vomiting ERIN MÁRQUEZ MD Nov 16, 2020 11:32
--- NOTE | 2020-11-16 13:47 | NUR ---
CM/FINALIZED DISCHARGE PLAN: Patient will dismiss to home with new need for Eliquis. Free 30 day coupon printed and also the $10 coupon for after the free supply. These were given to the patient and went over with him. I also visited with him about the drug itself and answered his questions. No further needs noted at this time.
[2020-11-16 14:45] VITALS: BP 132/79
--- NOTE | 2020-11-16 14:45 | NUR ---
PHILLIP DUMONT demonstrates understanding of discharge instructions and accurately returns instructions upon questioning. Copy of Post-Discharge Instructions and Medication Discharge Instructions given to PT. PHILLIP DUMONT is able to manage continuing needs after discharge. Patients belongings returned to PT. Skin dry and intact; no breakdown noted. Patient discharged from 404-1 on at 1445. PHILLIP DUMONT left floor via , accompanied by STAFF.
== END 2020-11-16 14:45 | disposition home or self-care (01) | DRG 443 ==
LOC: ER FS 13:31 → 4TH 17:02
PROVIDERS: ADMIT Family Medicine; ATTEND Family Medicine
DX: I81 Portal vein thrombosis (principal); E78.1 Pure hyperglyceridemia; E78.5 Hyperlipidemia, unspecified; I10 Essential (primary) hypertension; E11.9 Type 2 diabetes mellitus without complications; Z79.84 Long term (current) use of oral hypoglycemic drugs; Z82.49 Family history of ischemic heart disease and other diseases of the circulatory system; Z90.89 Acquired absence of other organs; Z90.49 Acquired absence of other specified parts of digestive tract
CPT/HCPCS: 36415; 74177; 80048; 80053; 81000; 81240; 81241; 83605; 83690; 83735; 85025; 85027; 85610; 85730; 94760

== ENCOUNTER 2021-01-01 14:50 | Outpatient (RCR) | payer BC ==
[~2021-01-01 14:50] MED LIST: ACHD5005 PO; APIX5TAB PO; ASCO500T17 PO; ASPI-1238 PO; CALC625T29 PO; CINN500C2 PO; EZET10TA49 PO; FENO160T12 PO; GARL500C2 PO; LISI1TAB46 PO; METF750T45 PO; MULT-1030 PO; OMG1KC PO; PANT40TA2 PO; UBID100C17 PO
== END 2021-04-01 | disposition home or self-care (01) ==
LOC: ONC 14:50
PROVIDERS: ATTEND Internal Medicine Hematology & Oncology
DX: I81 Portal vein thrombosis (principal); Z79.01 Long term (current) use of anticoagulants
CPT/HCPCS: 99213

== ENCOUNTER 2021-07-02 14:30 | Outpatient (RCR) | payer BC | END 2021-08-01 | disposition home or self-care (01) | LOC: ONC 14:30 | PROVIDERS: ATTEND Internal Medicine Hematology & Oncology | DX: I81 Portal vein thrombosis (principal); Z79.01 Long term (current) use of anticoagulants | CPT/HCPCS: 85300; 85302; 85305; 85610; 85613; 85705; 85730; 86146; 86147; 99213 ==